=== PATIENT | male | born 1945 | race Caucasian/White ===

== ENCOUNTER 2019-07-03 19:13 | Emergency (ER) | payer MEDICARE, OTHER ==
[~2019-07-03] VITALS: Ht 193 cm; Wt 106.0 kg
--- NOTE | 2019-07-03 20:25 | NUR ---
pt to room from lobby
[2019-07-03 20:33] LABS: RAPID INFLUENZA A Negative (Negative); RAPID INFLUENZA B Negative (Negative)
--- NOTE | 2019-07-03 20:55 | NUR ---
PT HAS HAD CO COUGH SORE THROAT FOR FEW DAYS. PT FAMILY STATES HE HAS "HAD CONUFSION AND BEEN SWERVING WHEN WALKING, IT IS TIAS" PT NEURO INTACT. NO DEFICITS NOTES. MD AT BEDSIDE. RESP EVEN AND UNLABORED HX DM2, HTN
--- NOTE | 2019-07-03 21:22 | NUR ---
PT RESTING ON GURNEY. NO NEEDS AT THIS TIME. WAITING FOR LAB RESULTS
[2019-07-03 21:30] LABS: BASOPHILS # (AUTO) 0.11 x10^3/uL (0-0.1); BASOPHILS % (AUTO) 1 % (0-1); EOSINOPHILS # (AUTO) 0.23 x10^3/uL (0-0.4); EOSINOPHILS % (AUTO) 2 % (1-7); LYMPHOCYTES # (AUTO) 2.03 x10^3/uL (1-3.4); LYMPHOCYTES % (AUTO) 19 % (22-44); MD NO; MEAN CORPUSCULAR HEMOGLOBIN 30.4 pg (27.5-34.5); MEAN CORPUSCULAR HGB CONC 33.4 g/dL (33.2-36.2); MEAN CORPUSCULAR VOLUME 91.1 fL (81-97); MONOCYTES # (AUTO) 0.86 x10^3/uL (0.2-0.8); MONOCYTES % (AUTO) 8 % (2-9); NEUTROPHILS # (AUTO) 7.66 x10^3/uL (1.8-6.8); NEUTROPHILS % (AUTO) 70 % (42-75); PLATELET COUNT 368 x10^3/uL (130-400); RED BLOOD COUNT 4.73 x10^6/uL (4.38-5.82); RED CELL DISTRIBUTION WIDTH 14.1 % (9.4-14.8)
[2019-07-03 21:33] LABS: ANION GAP 6 mmol/L (5-15); CALCIUM 8.7 mg/dL (8.5-10.1); CHLORIDE 105 mmol/L (98-107); CREATININE 1.03 mg/dL (0.7-1.3)
[2019-07-03 22:00] VITALS: BP 127/68
== END 2019-07-03 23:06 | disposition home or self-care (01) ==
LOC: ED 22:43
DX: J15.9 Unspecified bacterial pneumonia (principal); R05 Cough; R50.9 Fever, unspecified; I10 Essential (primary) hypertension; E11.9 Type 2 diabetes mellitus without complications; E78.00 Pure hypercholesterolemia, unspecified; Z87.891 Personal history of nicotine dependence
CPT/HCPCS: 36415; 71046; 80048; 85025; 87081; 87400; 87880; 99284